=== PATIENT | male | born 1955 ===

== ENCOUNTER → 2018-04-17 | Outpatient (CLI) | payer OTHER ==
[~2018-04-17] MED LIST: AMLO10 PO; ARANESP10 MCG/0.4; ATOR40TA PO; Aranesp40 MCG/0.4 INJ; Bactrim Ds Tab1 EACH PO; CEPH500 PO; CHOL10002 PO; CLON.1 PO; Clotrim Antifun15 GM TP; DOCU100 PO; INS70/30PN SC; LEVEMIR FL100 UNIT/1 SC; METO25 PO; TERA5 PO
== END | disposition home or self-care (01) ==
LOC: LAB 15:00 → LAB SHORT 15:00
DX: E11.9 Type 2 diabetes mellitus without complications (principal)
CPT/HCPCS: 83036

== ENCOUNTER 2018-07-01 06:36 | Inpatient (IN) | payer OTHER ==
[~2018-07-01] VITALS: Ht 165.1 cm; Wt 78.0 kg
[2018-07-01] MEDS ORDERED: HYDR10 PO (07:30)
[2018-07-01] MEDS ORDERED: BUME2 PO (07:30)
[2018-07-01] MEDS ORDERED: TAMS.4ER PO (07:30)
[2018-07-01 09:11] LABS: BASOPHILS ABSOLUTE AUTO 0.03 K/mm3 (0.00-0.23); BASOPHILS PERCENT AUTO 0 % (0-2); EOSINOPHILS ABSOLUTE AUTO 0.38 K/mm3 (0.00-0.68); EOSINOPHILS PERCENT AUTO 4 % (0-6); Hematocrit 23.5 % (37.0-53.0); Hemoglobin 7.5 g/dL (13.5-17.5); IMMATURE GRAN ABSOLUTE AUTO 0.19 K/mm3 (0.00-0.10); IMMATURE GRAN PERCENT AUTO 2 % (0-1); LYMPHOCYTES ABSOLUTE AUTO 0.66 K/mm3 (0.84-5.20); LYMPHOCYTES PERCENT AUTO 8 % (21-46); MONOCYTES ABSOLUTE AUTO 0.79 K/mm3 (0.16-1.47); MONOCYTES PERCENT AUTO 9 % (4-13); Mean Corpuscular HGB 28.6 pg (26.0-34.0); Mean Corpuscular HGB Conc 31.9 g/dL (31.5-36.5); Mean Corpuscular Volume 90 fL (80-100); Mean Platelet Volume 10.8 fL (9.1-12.4); NEUTROPHILS ABSOLUTE AUTO 6.65 K/mm3 (1.96-9.15); NEUTROPHILS PERCENT AUTO 76 % (41-73); NRBC ABSOLUTE 0.03 K/mm3 (0.00-0.02); NRBC Auto 0.3 /100 WBC (0.0-0.2); Platelet Count 190 K/mm3 (150-400); RDW Coefficient Variation 15.9 % (11.7-14.2); RDW Standard Deviation 51.6 fL (35.1-46.3); Red Blood Cell Count 2.62 M/mm3 (4.30-5.90)
[2018-07-01 10:29] LABS: Albumin, Blood 2.8 g/dL (3.4-5.0); Albumin/Globulin Ratio 0.6 (0.8-1.8); Bilirubin, Total 0.3 mg/dL (0.1-1.0); Bun/Creatinine Ratio 11.5 (12.0-20.0); Calcium, Blood 5.5 mg/dL (8.5-10.1); Creatinine, Blood 17.5 mg/dL (0.60-1.20); Globulin, Blood 4.4 g/dL (2.2-4.0); Total Protein, Blood 7.2 g/dL (6.4-8.2); Troponin I 0.619 ng/mL (0.000-0.040)
--- NOTE | 2018-07-01 19:22 | NUR ---
SHIFT SUMMARY. 1430 PT ADMITTED TO PCU FOR ESRD. SPOKE WITH DR. GARCIA, SHE REQUESTED THE PT BE ASKED IF HE WAS READY TO START DIALYSIS AT THIS TIME, HE HAD BEEN AVOIDING IT OVER THE PAST YEAR. FAMILY AT BEDSIDE, RISKS AND BENEFITS OF DIALYSIS GIVEN TO PT AND FAMILY. PT AND FAMILY AGREE TO START DIALYSIS. RELAYED THIS TO DR. GARCIA, SHE REQUESTED DR. KEARNEY BE CONSULTED FOR CATHETER PLACEMENT. DR. KEARNEY PLACED FEMORAL CATHETER TO R GROIN AT BEDSIDE, NURSE AT BEDSIDE FOR ASSISTANCE. PT TAKEN TO DIALYSIS ROOM SHORTLY AFTER PLACEMENT OF CATHETER.
[2018-07-02 05:03] LABS: Anion Gap 17 mmol/L (6-16); Blood Urea Nitrogen 158 mg/dL (8-24); CO2, Blood 19 mmol/L (21-32); Chloride, Blood 99 mmol/L (98-108); Glucose, Blood 136 mg/dL (70-99); Potassium, Blood 4.2 mmol/L (3.5-5.5); Sodium, Blood 135 mmol/L (136-145)
[2018-07-02 05:04] LABS: Albumin, Blood 2.4 g/dL (3.4-5.0); Glomerular Filtration Rate 3 (60-)
[2018-07-02 05:06] LABS: Calcium, Blood 5.6 mg/dL (8.5-10.1)
--- NOTE | 2018-07-02 05:26 | NUR ---
PCU NOC SHIFT SUMMARY PATIENT ALERT AND ORIENTED X4 T/O SHIFT. RESPIRATIONS E/U ON ROOM AIR. PATIENT NOTED TO BE HYPERTENSIVE T/O SHIFT -HYDRALIZINE GIVEN X1 PER EMAR. RIGHT CATH SITE REMAINS IN PLACE WNL. PATIENT SLEPT WELL T/O SHIFT- DAUGHTER AT BEDSIDE HELPFUL. PATIENT EDUCATED ON PO-OP, MEDICATION AND DM2 MANAGEMENT. VSS, NO ACUTE DISTRESS NOTED. WILL CONTINUE TO MONITOR AND GIVE REPORT TO DAYSHIFT RN.
--- NOTE | 2018-07-02 12:05 | NUR ---
Echocardiogram completed.
--- NOTE | 2018-07-02 13:01 | NUR ---
Apresoline given for hypertension at this time. Blood pressure still high 1.5 hours following Norvasc administration. Pt was taken to dialysis.
[2018-07-02 13:25] LABS: Hematocrit 24.4 % (37.0-53.0); Hemoglobin 8.1 g/dL (13.5-17.5)
--- NOTE | 2018-07-02 18:27 | NUR ---
No c/o pain or difficulty breathing. His only difficulty today has been nausea and vomiting following dialysis when he got up to use the bedside commode. This resolved on its own and he declined the zofran ordered prn. Blood pressure was unresponsive to prn apresoline which was administered before dialysisat 1300. he returned from dialysis around 4 pm. Cardilogy saw him and oral metoprolol was started this evening. His family is at the bedside.
--- NOTE | 2018-07-03 00:17 | NUR ---
[facility] REPORTS QUEEZY UPSET STOMACH PER ENGINE DISPATCHER DUE TO LANGUAGE BARRIER. ZOFRAN GIVEN AND REPORTS MUCH IMPROVED. MILD LOOSE COUGH AND PRODUCTIVE COUGH W/ VERY THIN SPIT LIKE SPUTUM. DAUGHTER REPORTS THIS HAS BEEN COMMON RECENTLY. SHE ALSO REPORTS HE WIPED HIS NOSE AND HAD A LITTLE BLOOD ON TISSUE. AND THIS HAS BEEN COMMON TOO THIS WINTER. LIGHT PINKISH DRAINAGE AT ORIFACE OF DSG FOR TEMP VAS CATH FOR HD USE. DENIES PAIN. NO ACTIVE BLEED. HIGHER BP AND WAITED A FEW HOURS TO CHECK ON RESULTS W/ PO MEDS. 174/80. APRESOLINE IV GIVEN AND NO IMMEDIATE CHANGE. LEFT TO CONT TO SLEEP/ DAUGHTER REPORTS SHE CAUGHT HIM OUT OF BED LEAVING BR AFTER GETTING OUT OF BED TO WALK INTO BR. BED ALARM WAS NOT ON AND DAUGHTER WAS ASLEEP/ THIS MAY HAVE OCCURED AROUND 2229. RECHECKED VAS CATH SITE AND NO ACUTE CHANGE OR BLEEDING. BED ALARM SET AND DAUGHTER ADVISED ON THIS EFFORT TO OBSERVE THE VERY LINITED WALKING, WITH BSC AND PIVOT ONLY. EXPRESSES UNDERSTANDING W/ HER DAD, IN HIS LANGUAGE
[2018-07-03 04:36] LABS: BASOPHILS ABSOLUTE AUTO 0.04 K/mm3 (0.00-0.23); BASOPHILS PERCENT AUTO 1 % (0-2); EOSINOPHILS ABSOLUTE AUTO 0.19 K/mm3 (0.00-0.68); EOSINOPHILS PERCENT AUTO 2 % (0-6); Hemoglobin 9.1 g/dL (13.5-17.5); IMMATURE GRAN ABSOLUTE AUTO 0.09 K/mm3 (0.00-0.10); IMMATURE GRAN PERCENT AUTO 1 % (0-1); LYMPHOCYTES ABSOLUTE AUTO 0.61 K/mm3 (0.84-5.20); LYMPHOCYTES PERCENT AUTO 7 % (21-46); MONOCYTES ABSOLUTE AUTO 0.73 K/mm3 (0.16-1.47); MONOCYTES PERCENT AUTO 8 % (4-13); Mean Corpuscular HGB 28.6 pg (26.0-34.0); Mean Corpuscular HGB Conc 32.5 g/dL (31.5-36.5); Mean Corpuscular Volume 88 fL (80-100); Mean Platelet Volume 9.9 fL (9.1-12.4); NEUTROPHILS PERCENT AUTO 81 % (41-73); Platelet Count 186 K/mm3 (150-400); RDW Coefficient Variation 15.3 % (11.7-14.2); RDW Standard Deviation 49.3 fL (35.1-46.3); Red Blood Cell Count 3.18 M/mm3 (4.30-5.90); White Blood Cell Count 8.66 K/mm3 (4.00-11.30)
[2018-07-03 05:02] LABS: CHOL/HDL RATIO 4.3; Cholesterol 175 mg/dL (50-200); HDL Cholesterol 41 mg/dL (>39); LDL/HDL RATIO 2.3; Low Density Lipoprotein Chol 95 mg/dL (0-110); Triglycerides 193 mg/dL (30-160); Very Low Density Lipoprot Chol 38 mg/dL (6-32)
[2018-07-03 05:09] LABS: Albumin, Blood 2.6 g/dL (3.4-5.0); Anion Gap 16 mmol/L (6-16); Blood Urea Nitrogen 104 mg/dL (8-24); Bun/Creatinine Ratio 9.5 (12.0-20.0); CO2, Blood 21 mmol/L (21-32); Calcium, Blood 6.9 mg/dL (8.5-10.1); Chloride, Blood 99 mmol/L (98-108); Glomerular Filtration Rate 5 (60-); Glucose, Blood 133 mg/dL (70-99); Phosphorus, Blood 6.6 mg/dL (2.5-4.9); Potassium, Blood 3.5 mmol/L (3.5-5.5); Sodium, Blood 136 mmol/L (136-145)
--- NOTE | 2018-07-03 17:56 | NUR ---
SHIFT SUMMARY Assumed care of pt at 0700 from Sara MOTTA. Pt on room air. SR per tele. Pt mobilizes around room without difficulty. SBA due to femoral catheter. After AM meds, this RN noticed that pt had about 50 ml of thin, watery, liquid in emesis bag. Pt was coughing and gagging when producing this liquid. Pt states this has been happening recently when he takes his pills, but this is not normal for him. Bed in lowest position. Call light in reach. Pt denies need at this time. Will continue to closely monitor until care handoff and bedside report with oncoming RN.
--- NOTE | 2018-07-03 22:23 | NUR ---
PM NOTE. ASSUMED CARE OF PT APROX 1900, PT IS A&O W/SBA TO BSC DUE TO RIGHT GROIN DIALYSIS CATH. PT HAS HX OF CKD. TELE INTACT, NSR W/BBB IN THE 70'S PER DUST COLLECTOR, PT'S BP IS 162/72, PT HAS 2+ PITTING EDEMA TO THE BLE AND 1+TO THE ABD AREA AND ARMS. PT'S L/S CLEAR T/O AND FINE CRACKELS IN THE RIGHT BASE. ABD IS FIRM AND SLIGHTLY DISTENDED, PT STATES THIS IS NORMAL FOR HIM. BT PRESENT AND HYPERACTIVE IN ALL QUADRANTS. WILL CONTINUE TO MONITOR.
[2018-07-04 03:12] LABS: HBSAG SCREEN Negative (Negative); HEP A AB, IGM Negative (Negative); HEP B CORE AB, IGM Negative (Negative); HEP C VIRUS AB 0.1 (0.0-0.9)
[2018-07-04 04:39] LABS: BASOPHILS ABSOLUTE AUTO 0.04 K/mm3 (0.00-0.23); BASOPHILS PERCENT AUTO 1 % (0-2); EOSINOPHILS ABSOLUTE AUTO 0.25 K/mm3 (0.00-0.68); EOSINOPHILS PERCENT AUTO 3 % (0-6); Hematocrit 27.7 % (37.0-53.0); Hemoglobin 8.8 g/dL (13.5-17.5); IMMATURE GRAN ABSOLUTE AUTO 0.06 K/mm3 (0.00-0.10); IMMATURE GRAN PERCENT AUTO 1 % (0-1); LYMPHOCYTES ABSOLUTE AUTO 0.83 K/mm3 (0.84-5.20); LYMPHOCYTES PERCENT AUTO 10 % (21-46); MONOCYTES ABSOLUTE AUTO 1.06 K/mm3 (0.16-1.47); MONOCYTES PERCENT AUTO 12 % (4-13); Mean Corpuscular HGB 28.1 pg (26.0-34.0); Mean Corpuscular HGB Conc 31.8 g/dL (31.5-36.5); Mean Corpuscular Volume 89 fL (80-100); Mean Platelet Volume 9.8 fL (9.1-12.4); NEUTROPHILS ABSOLUTE AUTO 6.47 K/mm3 (1.96-9.15); NEUTROPHILS PERCENT AUTO 74 % (41-73); Platelet Count 186 K/mm3 (150-400); RDW Coefficient Variation 14.9 % (11.7-14.2); RDW Standard Deviation 47.9 fL (35.1-46.3); Red Blood Cell Count 3.13 M/mm3 (4.30-5.90); White Blood Cell Count 8.71 K/mm3 (4.00-11.30)
[2018-07-04 05:44] LABS: Albumin, Blood 2.4 g/dL (3.4-5.0); Anion Gap 9 mmol/L (6-16); Blood Urea Nitrogen 72 mg/dL (8-24); Bun/Creatinine Ratio 8.1 (12.0-20.0); CO2, Blood 31 mmol/L (21-32); Calcium, Blood 7.2 mg/dL (8.5-10.1); Chloride, Blood 98 mmol/L (98-108); Creatinine, Blood 8.86 mg/dL (0.60-1.20); Glomerular Filtration Rate 6 (60-); Glucose, Blood 107 mg/dL (70-99); Phosphorus, Blood 4.7 mg/dL (2.5-4.9); Sodium, Blood 138 mmol/L (136-145)
--- NOTE | 2018-07-04 06:53 | NUR ---
SHIFT SUMMARY. NO ACUTE CHANGES NOTED, PT VS HAVE BEEN STABLE T/O SHIFT, PT DENIES ANY CHEST PAIN/PRESSURE, N/V OR SOB. PT HAS BEEN NPO SINCE MIDNIGHT FOR POSSIBLE PERMACATH PLACEMENT TODAY. PT HAS HAD FAMILY AT THE BEDSIDE ALL SHIFT. PT DENIES ANY NEEDS, QUESTIONS OR CONCERNS. CALL LIGHT IN REACH, BED IS LOCKED AND LOW, WILL CONTINUE TO MONITOR UNTIL REPORT IS GIVEN TO ONCOMING RN.
--- NOTE | 2018-07-04 10:17 | NUR ---
FROM PCU TO BAY 7 IN [facility] ADMISSION TO [facility] STARTED RECIEVED REPORT FORM CRIMINAL DEFENSE LAWYER.
--- NOTE | 2018-07-04 10:27 | NUR ---
BEGINNING OF SHIFT Assumed care of pt at 0700 from Christina MOTTA. Pt NPO for permacath placement today. AM pills given with one sip of water, okay per Dr Santo. Calcium and aspirin held. Pt on room air. Mobilizes well in room. Pt to day surgery at 1005.
--- NOTE | 2018-07-04 17:29 | NUR ---
UPDATE AND TRANSFER TO MEDICAL FLOOR Pt arrived back from day surgery at 1237. Permacath noted to right chest wall. Permacath insertion site draining a small amount of red drainage. Dressing reiforced with one 4x4 gauze and tape that remained intact upon departure from unit. Temporary dialysis catheter removed from pt's right groin by this RN and charge master coordinator Sheri. Manual pressure held until site was stable. Dressed with petroleum gauze, 4x4 gauze, and tegaderm. Pt tolerated removal well. No drainage, bruising, or hematoma noted to site. No changes noted to site at time of departure from unit. Pt tolerated thin liquids and food well. This RN called critical troponin to Dr Bateman. No additional orders. Discussed pt's BP with provider. Report called to surgical floor ÁNGELA Marti. Pt transferred to room 224 at 1729 accompanied by FLAVOR MAKER and RN. Chart, medications, and belongings transferred with patient.
--- NOTE | 2018-07-04 17:41 | NUR ---
ARRIVED TO UNIT FROM PCU. DENIES PAIN,N/V OR SOB. RESPIRATIONS EASY ON 1L NC. DRESSING TO RCW HAS SMALL AMT SANGUINEOUS DRAINAGE. SITE TO R GROIN HAS SMALL AMOUNT SANGUINEOUS DRAINAGE. PT TRANSFERRED TO BED W/SBA. FAMILY AT BEDSIDE. CALL LIGHT IN REACH.
[2018-07-05 04:39] LABS: BASOPHILS ABSOLUTE AUTO 0.07 K/mm3 (0.00-0.23); BASOPHILS PERCENT AUTO 1 % (0-2); EOSINOPHILS ABSOLUTE AUTO 0.48 K/mm3 (0.00-0.68); EOSINOPHILS PERCENT AUTO 5 % (0-6); Hematocrit 27.2 % (37.0-53.0); Hemoglobin 8.6 g/dL (13.5-17.5); IMMATURE GRAN ABSOLUTE AUTO 0.04 K/mm3 (0.00-0.10); IMMATURE GRAN PERCENT AUTO 0 % (0-1); LYMPHOCYTES ABSOLUTE AUTO 0.93 K/mm3 (0.84-5.20); LYMPHOCYTES PERCENT AUTO 10 % (21-46); MONOCYTES ABSOLUTE AUTO 1.01 K/mm3 (0.16-1.47); MONOCYTES PERCENT AUTO 11 % (4-13); Mean Corpuscular HGB 28.4 pg (26.0-34.0); Mean Corpuscular HGB Conc 31.6 g/dL (31.5-36.5); Mean Corpuscular Volume 90 fL (80-100); Mean Platelet Volume 9.4 fL (9.1-12.4); NEUTROPHILS ABSOLUTE AUTO 6.84 K/mm3 (1.96-9.15); NEUTROPHILS PERCENT AUTO 73 % (41-73); Platelet Count 165 K/mm3 (150-400); RDW Coefficient Variation 14.5 % (11.7-14.2); RDW Standard Deviation 47.6 fL (35.1-46.3); Red Blood Cell Count 3.03 M/mm3 (4.30-5.90); White Blood Cell Count 9.37 K/mm3 (4.00-11.30)
--- NOTE | 2018-07-05 04:46 | NUR ---
POD 1 S/P PERMACATH PLACEMENT. PT VSS T/O NIGHT, BP ELEVATED, BUT REMAINED OUTSIDE OF PRN HYDRALAZINE PARAMETERS. SITE TO PERMACATH AND FEMORAL CATH WNL. PT DENIED PAIN/N/V. PT UP IN ROOM W/SBA, FAMILY PRESENT IN ROOM, WILL CONT TO MONITOR UNTIL REP GIVEN TO ONCOMING RN.
[2018-07-05 06:00] LABS: Albumin, Blood 2.4 g/dL (3.4-5.0); Anion Gap 10 mmol/L (6-16); Blood Urea Nitrogen 74 mg/dL (8-24); Bun/Creatinine Ratio 7.7 (12.0-20.0); CO2, Blood 28 mmol/L (21-32); Calcium, Blood 6.9 mg/dL (8.5-10.1); Chloride, Blood 96 mmol/L (98-108); Creatinine, Blood 9.64 mg/dL (0.60-1.20); Glomerular Filtration Rate 6 (60-); Glucose, Blood 157 mg/dL (70-99); Phosphorus, Blood 5.1 mg/dL (2.5-4.9); Potassium, Blood 4.4 mmol/L (3.5-5.5); Sodium, Blood 134 mmol/L (136-145)
--- NOTE | 2018-07-05 09:49 | NUR ---
pt in dialysis
[2018-07-05] MEDS ORDERED: ACET500 PO (12:20)
[2018-07-05] MEDS ORDERED: AMLO5 PO (12:21)
[2018-07-05] MEDS ORDERED: ASPI81CH PO (12:22)
[2018-07-05] MEDS ORDERED: ATOR10 PO (12:23)
[2018-07-05] MEDS ORDERED: Calcium Acetat667 MG PO (12:24)
[2018-07-05] MEDS ORDERED: Senna Plus Tab1 EACH PO (12:25)
[2018-07-05] MEDS ORDERED: ONDA4ODT PO (12:26)
[2018-07-05] MEDS ORDERED: METO50ER PO (12:27)
--- NOTE | 2018-07-05 14:24 | NUR ---
DISCHARGED DC'D IV, CATHETER INTACT. REVIEWED DC INSTRUCTIONS W/PT AND FAMILY. VERBALIZED UNDERSTANDING. FAXED PRESCRIPTIONS TO [facility] PER PT REQUEST. DC'D AND RETURNED TELEMETRY UNIT. PT LEFT UNIT IN WC W/POSSESSIONS AND DC PAPERWORK IN HAND, ACCOMPANIED BY FAMILY.
== END 2018-07-05 14:24 | disposition home or self-care (01) | DRG 682 ==
LOC: ER 06:36 → SURS 11:13 → PCU 11:13 → SURS 07-04 17:30
PROVIDERS: Internal Medicine; Internal Medicine Cardiovascular Disease; Physician Assistant; ADMIT Internal Medicine
PROC: 06HM33Z Insertion of Infusion Device into Right Femoral Vein, Percutaneous Approach (ICD-10-PCS; principal; 2018-07-01)
PROC: B54BZZA Ultrasonography of Right Lower Extremity Veins, Guidance (ICD-10-PCS; 2018-07-01)
PROC: 5A1D70Z Performance of Urinary Filtration, Intermittent, Less than 6 Hours Per Day (ICD-10-PCS; 2018-07-01)
PROC: 30243N1 Transfusion of Nonautologous Red Blood Cells into Central Vein, Percutaneous Approach (ICD-10-PCS; 2018-07-01)
PROC: 05HM33Z Insertion of Infusion Device into Right Internal Jugular Vein, Percutaneous Approach (ICD-10-PCS; 2018-07-04)
PROC: B543ZZA Ultrasonography of Right Jugular Veins, Guidance (ICD-10-PCS; 2018-07-04)
DX: I13.11 Hypertensive heart and chronic kidney disease without heart failure, with stage 5 chronic kidney disease, or end stage renal disease (principal); N18.6 End stage renal disease; E87.2 Acidosis; E87.1 Hypo-osmolality and hyponatremia; N17.9 Acute kidney failure, unspecified; N04.9 Nephrotic syndrome with unspecified morphologic changes; E11.22 Type 2 diabetes mellitus with diabetic chronic kidney disease; Z79.4 Long term (current) use of insulin; E87.5 Hyperkalemia; E83.51 Hypocalcemia; E83.39 Other disorders of phosphorus metabolism; D63.1 Anemia in chronic kidney disease; Z87.891 Personal history of nicotine dependence; E87.70 Fluid overload, unspecified; Z99.2 Dependence on renal dialysis
CPT/HCPCS: 36415; 36416; 36430; 71046; 77001; 80053; 80061; 80069; 80074; 82947; 83735; 83880; 84132; 84443; 84484; 85014; 85018; 85025; 86317; 86850; 86900; 86901; 86923; 93005; 93010; 93306; 96374; 96375; 99285-25; C1750; J0360; J0610; J0690; J0881; J1644; J1815; J1940; J2250; J2370; J2405; J3010; J7030; P9016

== ENCOUNTER → 2018-07-09 | Outpatient (CLI) | payer OTHER ==
[~2018-07-09] MED LIST changes: +ACET500 PO; +AMLO5 PO; +ASPI81CH PO; +ATOR10 PO; +BUME2 PO; +Calcium Acetat667 MG PO; +HYDR10 PO; +METO50ER PO; +ONDA4ODT PO; +Senna Plus Tab1 EACH PO; +TAMS.4ER PO
[2018-07-09 16:55] LABS: BASOPHILS ABSOLUTE AUTO 0.05 K/mm3 (0.00-0.23); BASOPHILS PERCENT AUTO 1 % (0-2); EOSINOPHILS ABSOLUTE AUTO 0.23 K/mm3 (0.00-0.68); EOSINOPHILS PERCENT AUTO 6 % (0-6); Hematocrit 25.9 % (37.0-53.0); Hemoglobin 8.1 g/dL (13.5-17.5); IMMATURE GRAN ABSOLUTE AUTO 0.03 K/mm3 (0.00-0.10); IMMATURE GRAN PERCENT AUTO 1 % (0-1); LYMPHOCYTES ABSOLUTE AUTO 0.72 K/mm3 (0.84-5.20); LYMPHOCYTES PERCENT AUTO 19 % (21-46); MONOCYTES ABSOLUTE AUTO 0.37 K/mm3 (0.16-1.47); MONOCYTES PERCENT AUTO 10 % (4-13); Mean Corpuscular HGB 28.5 pg (26.0-34.0); Mean Corpuscular HGB Conc 31.3 g/dL (31.5-36.5); Mean Corpuscular Volume 91 fL (80-100); Mean Platelet Volume 9.9 fL (9.1-12.4); NEUTROPHILS ABSOLUTE AUTO 2.42 K/mm3 (1.96-9.15); NEUTROPHILS PERCENT AUTO 63 % (41-73); Platelet Count 163 K/mm3 (150-400); RDW Coefficient Variation 14.1 % (11.7-14.2); RDW Standard Deviation 47.5 fL (35.1-46.3); Red Blood Cell Count 2.84 M/mm3 (4.30-5.90); White Blood Cell Count 3.82 K/mm3 (4.00-11.30)
[2018-07-09 17:10] LABS: Alanine Aminotransfer (ALT/SGP 144 U/L (12-78); Albumin, Blood 2.6 g/dL (3.4-5.0); Albumin/Globulin Ratio 0.6 (0.8-1.8); Alk Phos 472 U/L (50-136); Aspartate Aminotrans (AST/SGOT 140 U/L (12-37); Bilirubin, Direct <0.1 mg/dL (0.0-0.3); Bilirubin, Indirect Unable to Calculate mg/dL (0.1-0.7); Bilirubin, Total 0.3 mg/dL (0.1-1.0); Globulin, Blood 4.1 g/dL (2.2-4.0); Total Protein, Blood 6.7 g/dL (6.4-8.2)
== END | disposition home or self-care (01) ==
LOC: LAB SHORT 16:25 → LAB 16:25
PROVIDERS: Internal Medicine
DX: N18.6 End stage renal disease (principal)
CPT/HCPCS: 80076; 85025

== ENCOUNTER 2018-11-26 06:25 | Day surgery (SDC) | payer MEDICARE ==
[~2018-11-26] VITALS: Ht 160 cm; Wt 70.0 kg
[2018-11-26 07:26] LABS: BASOPHILS ABSOLUTE AUTO 0.08 K/mm3 (0.00-0.23); BASOPHILS PERCENT AUTO 1 % (0-2); EOSINOPHILS ABSOLUTE AUTO 0.44 K/mm3 (0.00-0.68); EOSINOPHILS PERCENT AUTO 7 % (0-6); Hematocrit 36.8 % (37.0-53.0); Hemoglobin 11.6 g/dL (13.5-17.5); IMMATURE GRAN ABSOLUTE AUTO 0.01 K/mm3 (0.00-0.10); IMMATURE GRAN PERCENT AUTO 0 % (0-1); LYMPHOCYTES PERCENT AUTO 25 % (21-46); MONOCYTES ABSOLUTE AUTO 0.73 K/mm3 (0.16-1.47); MONOCYTES PERCENT AUTO 12 % (4-13); Mean Corpuscular HGB Conc 31.5 g/dL (31.5-36.5); Mean Corpuscular Volume 102 fL (80-100); Mean Platelet Volume 9.1 fL (9.1-12.4); NEUTROPHILS PERCENT AUTO 55 % (41-73); Platelet Count 177 K/mm3 (150-400); RDW Coefficient Variation 13.3 % (11.7-14.2); RDW Standard Deviation 50.1 fL (35.1-46.3); Red Blood Cell Count 3.62 M/mm3 (4.30-5.90); White Blood Cell Count 6.36 K/mm3 (4.00-11.30)
[2018-11-26 07:41] LABS: Bun/Creatinine Ratio 6.9 (12.0-20.0); Calcium, Blood 8.3 mg/dL (8.5-10.1); Creatinine, Blood 6.56 mg/dL (0.60-1.20); International Normalized Ratio 1.01; Potassium, Blood 5.2 mmol/L (3.5-5.5); Prothrombin Time Results 10.7 Sec (9.7-11.5)
== END 2018-11-26 11:00 | disposition home or self-care (01) ==
LOC: MHTC 06:25
PROVIDERS: Radiology Diagnostic Radiology
PROC: 057Y3ZZ Dilation of Upper Vein, Percutaneous Approach (ICD-10-PCS; principal; 2018-11-26)
DX: T82.868A Thrombosis due to vascular prosthetic devices, implants and grafts, initial encounter (principal); N18.6 End stage renal disease; E11.22 Type 2 diabetes mellitus with diabetic chronic kidney disease; I12.0 Hypertensive chronic kidney disease with stage 5 chronic kidney disease or end stage renal disease; N13.9 Obstructive and reflux uropathy, unspecified; E55.9 Vitamin D deficiency, unspecified; E78.5 Hyperlipidemia, unspecified; I83.90 Asymptomatic varicose veins of unspecified lower extremity; Z99.2 Dependence on renal dialysis; Z79.899 Other long term (current) drug therapy; Z79.4 Long term (current) use of insulin; Z79.82 Long term (current) use of aspirin; Z87.891 Personal history of nicotine dependence
CPT/HCPCS: 36901; 36907; 80048; 82947; 85025; 85610; 99152; 99153; C1725; C1769; C1887; C1894; J1644; J2250; J3010; J7030; Q9967

== ENCOUNTER 2019-04-24 06:26 | Day surgery (SDC) | payer OTHER, MEDICARE ==
[~2019-04-24] VITALS: Ht 167.6 cm; Wt 71.0 kg
[~2019-04-24 06:26] MED LIST changes: -BUME2 PO; +Bumetanide1 MG PO; +CENTRUM SILVER1 EAC2 PO; +THERA-D2000 UNIT PO
--- NOTE | 2019-04-24 10:34 | NUR ---
PTS BP CURRENTLY 214/101 AND HAS NOT DECREASED SINCE RESTING. DISCUSSED WITH DR. Romano WHO REQUESTED HYDRALAZINE 10MG IV NOW. DISCUSSED WITH PT AND HIS WHO DECIDED TO RUN HOME AND GET HOME MEDICATION FOR BP. MD NOTIFIED. WILL CONTINUE TO MONITOR.
--- NOTE | 2019-04-24 11:15 | NUR ---
DUE TO PTS BP STILL INCREASING 227/135 AND PTS NOT BACK YET WITH HOME MEDICATIONS. PT WAS GIVEN 10MG HYDRALAZINE IVP ORDERED BY DR. Romano. WILL CONTINUE TO MONITOR.
--- NOTE | 2019-04-24 11:56 | NUR ---
ADDITIONAL V/O FOR HYDRALAZINE 10MG IV PUSH FOR HYPERTENSION FROM DR. Romano. PT MEDICATED AT 1150. PT ALSO TOOK HOME MEDICATION METOPROLOL 50MG ER. NOTIFED. PT CURRENTLY EATING LUNCH. WILL CONTINUE TO MONITOR. GOAL TO DECREASE BP PRIOR TO PURSE STRING SUTURE REMOVAL.
== END 2019-04-24 23:03 | disposition home or self-care (01) ==
LOC: MHTC 06:26
DX: T82.858A Stenosis of other vascular prosthetic devices, implants and grafts, initial encounter (principal); I12.0 Hypertensive chronic kidney disease with stage 5 chronic kidney disease or end stage renal disease; E11.22 Type 2 diabetes mellitus with diabetic chronic kidney disease; N18.6 End stage renal disease; D63.1 Anemia in chronic kidney disease; N40.0 Benign prostatic hyperplasia without lower urinary tract symptoms; E11.42 Type 2 diabetes mellitus with diabetic polyneuropathy; Z79.82 Long term (current) use of aspirin; Z79.4 Long term (current) use of insulin; Z79.899 Other long term (current) drug therapy; Z99.2 Dependence on renal dialysis; Z87.891 Personal history of nicotine dependence; Y84.0 Cardiac catheterization as the cause of abnormal reaction of the patient, or of later complication, without mention of misadventure at the time of the procedure
CPT/HCPCS: 36901; 36908; 76937; 82947; 99152; 99153; C1725; C1769; C1876; C1887; C1894; J0360; J1644; J2250; J3010; J7030; Q9967

== ENCOUNTER 2019-12-31 11:27 | Day surgery (SDC) | payer OTHER, MEDICARE ==
[~2019-12-31] VITALS: Ht 160 cm; Wt 69.0 kg
[~2019-12-31 11:27] MED LIST changes: -THERA-D2000 UNIT PO; +Vitamin D2000 UNIT PO
--- NOTE | 2019-12-31 12:10 | NUR ---
PT TOOK HOME METOPROLOL 50MG PO NOW D/T ELEVATED BP NOTED. PT HADN'T TAKEN ANY MEDICATION IN 3 DAYS. CALL LIGHT WITHIN REACH. S/O AT BEDSIDE. PT AWAITING FISTULAGRAM
--- NOTE | 2019-12-31 16:11 | NUR ---
To bathroom. Tolerated well. Dressed for discharge.
--- NOTE | 2019-12-31 17:12 | NUR ---
DISCHARGE PT ATE ALL OF FOOD TRAY. PT DRESSED SELF WITH NO COMPLICATIONS. BOTH PURSE STRING SUTURES REMOVED AND COVERED WITH CLOTH DOT DRESSINGS. VSS. IV DCD WITH CATH INTACT. PT AND STATE THEIR UNDERSTANDING OF DC AND SITE CARE INSTRUCTIONS AND BOTH DENY ANY QUESTIONS OR CONCERNS. PT TAKEN TO FRONT VIA WHEELCHAIR WHERE WAS WAITING WITH VEHICLE.
== END 2019-12-31 23:20 | disposition home or self-care (01) ==
LOC: MHTC 11:27
DX: T82.858A Stenosis of other vascular prosthetic devices, implants and grafts, initial encounter (principal); Y83.2 Surgical operation with anastomosis, bypass or graft as the cause of abnormal reaction of the patient, or of later complication, without mention of misadventure at the time of the procedure; I12.0 Hypertensive chronic kidney disease with stage 5 chronic kidney disease or end stage renal disease; E11.22 Type 2 diabetes mellitus with diabetic chronic kidney disease; N18.6 End stage renal disease; E78.5 Hyperlipidemia, unspecified; Z87.891 Personal history of nicotine dependence; Z20.828 Contact with and (suspected) exposure to other viral communicable diseases; Z99.2 Dependence on renal dialysis; Z79.899 Other long term (current) drug therapy
CPT/HCPCS: 36902; 36907; 76937; 99152; 99153; C1725; C1769; C1887; C1894; J0360; J1644; J2250; J3010; J7030; J7040; Q9967

== ENCOUNTER 2020-02-20 11:20 | Observation (INO) | payer OTHER, MEDICARE ==
[~2020-02-20] VITALS: Ht 165.1 cm; Wt 65.6 kg
[~2020-02-20 11:20] MED LIST changes: +BUME2 PO; -Bumetanide1 MG PO
[2020-02-20 13:24] LABS: Hematocrit 29.8 % (37.0-53.0); Hemoglobin 9.5 g/dL (13.5-17.5); Mean Corpuscular HGB 29.6 pg (26.0-34.0); Mean Corpuscular HGB Conc 31.9 g/dL (31.5-36.5); Mean Corpuscular Volume 93 fL (80-100); Mean Platelet Volume 9.6 fL (9.1-12.4); Platelet Count 232 K/mm3 (150-400); RDW Coefficient Variation 12.8 % (11.7-14.2); RDW Standard Deviation 43.9 fL (35.1-46.3); Red Blood Cell Count 3.21 M/mm3 (4.30-5.90); White Blood Cell Count 8.47 K/mm3 (4.00-11.30)
[2020-02-20 14:06] LABS: Albumin, Blood 2.6 g/dL (3.4-5.0); Albumin/Globulin Ratio 0.5 (0.8-1.8); Bilirubin, Total 0.4 mg/dL (0.1-1.0); Bun/Creatinine Ratio 7.4 (12.0-20.0); Calcium, Blood 9.7 mg/dL (8.5-10.1); Creatinine, Blood 10.3 mg/dL (0.60-1.20); Globulin, Blood 5.6 g/dL (2.2-4.0); Potassium, Blood 6.6 mmol/L (3.5-5.5); Total Protein, Blood 8.2 g/dL (6.4-8.2)
--- NOTE | 2020-02-20 17:36 | NUR ---
discharge summary patient is pleasant, patient denies any concerns. reports that heis pleasant. he has no questions. he had no iv. wheeled out by nurse.
== END 2020-02-20 16:56 | disposition home or self-care (01) ==
LOC: MEDS 11:20
PROVIDERS: Nurse Practitioner Acute Care; ADMIT Internal Medicine
DX: I12.0 Hypertensive chronic kidney disease with stage 5 chronic kidney disease or end stage renal disease (principal); E11.22 Type 2 diabetes mellitus with diabetic chronic kidney disease; N18.6 End stage renal disease; D63.1 Anemia in chronic kidney disease; U07.1 COVID-19; E87.5 Hyperkalemia; I16.0 Hypertensive urgency; N40.0 Benign prostatic hyperplasia without lower urinary tract symptoms; Z79.899 Other long term (current) drug therapy; Z99.2 Dependence on renal dialysis
CPT/HCPCS: 80053; 85027; G0257

== ENCOUNTER 2020-02-24 11:44 | Observation (INO) | payer MEDICARE ==
[2020-02-24] MEDS ORDERED: Bumetanide2 MG PO (11:49)
[2020-02-24] MEDS ORDERED: LOSA50 PO (11:51)
[2020-02-24 13:32] LABS: Albumin, Blood 2.4 g/dL (3.4-5.0); Anion Gap 10 mmol/L (6-16); Blood Urea Nitrogen 72 mg/dL (8-24); CO2, Blood 23 mmol/L (21-32); Chloride, Blood 102 mmol/L (98-108); Glucose, Blood 216 mg/dL (70-99); Phosphorus, Blood 3.6 mg/dL (2.5-4.9); Potassium, Blood 5.1 mmol/L (3.5-5.5); Sodium, Blood 135 mmol/L (136-145)
[2020-02-24 13:35] LABS: Bun/Creatinine Ratio 6.9 (12.0-20.0); Glomerular Filtration Rate 5 (60-)
== END 2020-02-24 16:15 | disposition home or self-care (01) ==
LOC: MEDS 11:44
PROVIDERS: Internal Medicine; ADMIT Family Medicine
DX: I12.0 Hypertensive chronic kidney disease with stage 5 chronic kidney disease or end stage renal disease (principal); E11.22 Type 2 diabetes mellitus with diabetic chronic kidney disease; N18.6 End stage renal disease; D63.1 Anemia in chronic kidney disease; U07.1 COVID-19; N40.0 Benign prostatic hyperplasia without lower urinary tract symptoms; Z99.2 Dependence on renal dialysis; Z91.048 Other nonmedicinal substance allergy status; Z79.899 Other long term (current) drug therapy
CPT/HCPCS: 80069; 85018; G0257; G0378; J0881

== ENCOUNTER 2024-02-27 21:00 | Inpatient (IN) | payer MEDICARE, OTHER ==
[~2024-02-27] VITALS: Ht 172.7 cm; Wt 67.3 kg
[~2024-02-27 21:00] MED LIST changes: +AZIT250 PO; +Atropine Sulfate 0.1 MG/ML 10ML SYR IV ONE; +Bumetanide2 MG PO; +Calcium Chloride 10% 10 ML SYR IV ONE; +LOSA50 PO
[2024-02-27] MEDS ORDERED: AMLO10 PO (21:14)
[2024-02-27] MEDS ORDERED: TORS10 PO (21:15)
[2024-02-27 21:31] LABS: BASOPHILS ABSOLUTE AUTO 0.08 K/mm3 (0.00-0.23); BASOPHILS PERCENT AUTO 1 % (0-2); EOSINOPHILS ABSOLUTE AUTO 0.24 K/mm3 (0.00-0.68); EOSINOPHILS PERCENT AUTO 4 % (0-6); Hemoglobin 10.8 g/dL (13.5-17.5); IMMATURE GRAN ABSOLUTE AUTO 0.03 K/mm3 (0.00-0.10); IMMATURE GRAN PERCENT AUTO 1 % (0-1); LYMPHOCYTES ABSOLUTE AUTO 2.07 K/mm3 (0.84-5.20); LYMPHOCYTES PERCENT AUTO 32 % (21-46); MONOCYTES ABSOLUTE AUTO 0.65 K/mm3 (0.16-1.47); MONOCYTES PERCENT AUTO 10 % (4-13); Mean Corpuscular HGB 27.6 pg (26.0-34.0); Mean Corpuscular HGB Conc 31.8 g/dL (31.5-36.5); Mean Corpuscular Volume 87 fL (80-100); Mean Platelet Volume 10.8 fL (9.1-12.4); NEUTROPHILS ABSOLUTE AUTO 3.47 K/mm3 (1.96-9.15); NEUTROPHILS PERCENT AUTO 53 % (41-73); Platelet Count 156 K/mm3 (150-400); RDW Coefficient Variation 15.9 % (11.7-14.2); Red Blood Cell Count 3.91 M/mm3 (4.30-5.90); White Blood Cell Count 6.54 K/mm3 (4.00-11.30)
[2024-02-27] MEDS ORDERED: Atropine Sulfate 0.1 MG/ML 10ML SYR IV ONE (21:35)
[2024-02-27] MEDS ORDERED: Calcium Chloride 10% 100 MG/ML 10ML Vial IV SCH (21:55)
[2024-02-27] MEDS ORDERED: Insulin Regular 100 Unit/ML 1ML Dose IV ONE (21:55)
[2024-02-27] MEDS ORDERED: Sodium Bicarb 8.4% 1 MEQ/ML 50 ML Vial IV ONE (21:55)
[2024-02-27] MEDS ORDERED: Albuterol 2.5 MG/3 ML VIAL INH SCH (21:55)
[2024-02-27] MEDS ORDERED: Dextrose 50% 50 ML Syringe IV ONE (22:35)
[2024-02-27 22:36] LABS: Free Thyroxine 1.14 ng/dL (0.70-1.60); Thyroid Stimulating Hormone 3.97 uIU/mL (0.360-4.800)
[2024-02-27 22:41] LABS: Albumin, Blood 3.8 g/dL (3.4-5.0); Albumin/Globulin Ratio 0.8 (0.8-1.8); Bilirubin, Total 0.5 mg/dL (0.1-1.0); Bun/Creatinine Ratio 5.9 (12.0-20.0); Calcium, Blood 7.6 mg/dL (8.5-10.1); Creatinine, Blood 12.8 mg/dL (0.60-1.20); Globulin, Blood 4.5 g/dL (2.2-4.0); Potassium, Blood 7.5 mmol/L (3.5-5.5); Total Protein, Blood 8.3 g/dL (6.4-8.2)
[2024-02-27] MEDS ORDERED: FLU VACC TS2024-25(6MOS UP)/PF 45 MCG/0.5 ML SYRINGE IM SCH (22:50)
--- NOTE | 2024-02-27 23:01 | NUR ---
PT TO ICU ROOM 11 VIA STEPHANY WITH ED STAFF. SETTLED INTO ROOM BY LASHELL MOTTA AND LUCY RN. CONTINOUS CARDIAC MONITORING IN PLACE SHOWED SINUS HALIMA WITH HR OF 46 AND BP OF 183/56. PT ASYMPTOMATIC, ALERT AND ORIENTED X 4, INTERACTING WITH STAFF AND ANSWERING QUESTIONS APPROPRIATELY. ON RA WITH O2 SATURATION OF 94%. PT AND GRANDDAUGHTER AT BEDSIDE. SEE ADMIT ASSESSMENT FOR FULL DETAILS.
[2024-02-27 23:13] LABS: Magnesium, Blood 3.5 mg/dL (1.6-2.4); Phosphorus, Blood 7.9 mg/dL (2.5-4.9)
[2024-02-27 23:15] VITALS: BP 183/55
[2024-02-27 23:30] VITALS: BP 183/56
[2024-02-27 23:40] VITALS: BP 176/64
[2024-02-27 23:45] VITALS: BP 182/56
[2024-02-28] VITALS (78 sets, daily range): BP systolic 141–183; BP diastolic 40–84
[2024-02-28] MEDS ORDERED: HydrALAZINE HCl 20 MG / ML 1ML Vial IV PRN (00:20)
[2024-02-28] MEDS ORDERED: CloNIDine 0.1 MG Tab PO PRN (01:05)
[2024-02-28 02:40] LABS: BASOPHILS ABSOLUTE AUTO 0.07 K/mm3 (0.00-0.23); BASOPHILS PERCENT AUTO 1 % (0-2); EOSINOPHILS PERCENT AUTO 2 % (0-6); Hematocrit 31.8 % (37.0-53.0); Hemoglobin 10.1 g/dL (13.5-17.5); IMMATURE GRAN ABSOLUTE AUTO 0.02 K/mm3 (0.00-0.10); IMMATURE GRAN PERCENT AUTO 0 % (0-1); LYMPHOCYTES ABSOLUTE AUTO 0.51 K/mm3 (0.84-5.20); LYMPHOCYTES PERCENT AUTO 8 % (21-46); MONOCYTES ABSOLUTE AUTO 0.48 K/mm3 (0.16-1.47); MONOCYTES PERCENT AUTO 8 % (4-13); Mean Corpuscular HGB Conc 31.8 g/dL (31.5-36.5); Mean Corpuscular Volume 85 fL (80-100); Mean Platelet Volume 10.6 fL (9.1-12.4); NEUTROPHILS ABSOLUTE AUTO 5.05 K/mm3 (1.96-9.15); NEUTROPHILS PERCENT AUTO 81 % (41-73); Platelet Count 140 K/mm3 (150-400); RDW Coefficient Variation 15.9 % (11.7-14.2); RDW Standard Deviation 49.4 fL (35.1-46.3); Red Blood Cell Count 3.74 M/mm3 (4.30-5.90); White Blood Cell Count 6.23 K/mm3 (4.00-11.30)
[2024-02-28 03:14] LABS: Albumin, Blood 3.9 g/dL (3.4-5.0); Albumin/Globulin Ratio 0.9 (0.8-1.8); Bilirubin, Total 0.6 mg/dL (0.1-1.0); Bun/Creatinine Ratio 5.7 (12.0-20.0); Calcium, Blood 8.6 mg/dL (8.5-10.1); Creatinine, Blood 9.2 mg/dL (0.60-1.20); Globulin, Blood 4.3 g/dL (2.2-4.0); Phosphorus, Blood 5.3 mg/dL (2.5-4.9); Potassium, Blood 5.5 mmol/L (3.5-5.5); Total Protein, Blood 8.2 g/dL (6.4-8.2)
[2024-02-28] MEDS ORDERED: Sodium Zirconium Cyclosilicate 10 GM Packet PO SCH ×2 (03:35→09:00)
--- NOTE | 2024-02-28 04:59 | NUR ---
SHIFT SUMMARY PT REMAINED ALERT AND ORIENTED X 4 T/O ENTIRETY OF SHIFT. ABLE TO FOLLOW COMMANDS, MAKE PURPOSEFUL MOVEMENTS, AND MAKE NEEDS KNOWN. AFEBRILE AND DENIES PAIN. CONTINOUS CARDIAC MONITORING IN PLACE SHOWED SINUS HALIMA WITH HR IN 30'S-40'S. SBP 150'S-170'S WITH MAP > 65. ON RA WITH O2 SATURATIONS > 92%. NO BM THIS SHIFT. ONE EPISODE OF NAUSEA THAT SUBSIDED SPONTANEOUSLY. TOLERATED WATER AND PO LOKELMA. DIALYZED THIS SHIFT WITH NET FLUID REMOVAL OF 2150. FISTULA TO LFA, PIV TO RFA. DR. HAYNES NOTIFIED OF AM LABS S/P DIALYSIS, PLAN TO DIALYZE AGAIN TODAY. AT BEDSIDE. WILL CONTINUE TO MONITOR AND REPORT TO ONCOMING RN.
[2024-02-28] MEDS ORDERED: Insulin Human Lispro 100 Units/ML 3ML Syringe SC SCH (07:30)
[2024-02-28] MEDS ORDERED: Calcium Acetate 667 MG Gel Cap PO SCH (08:30)
[2024-02-28] MEDS ORDERED: Sevelamer Carbonate 800 MG Tab PO SCH (08:30)
[2024-02-28] MEDS ORDERED: AmLODIPine Besylate 5 MG Tab PO SCH (09:00)
[2024-02-28] MEDS ORDERED: CloNIDine 0.1 MG Tab PO SCH ×3 (09:00)
[2024-02-28] MEDS ORDERED: Vitamin B Cmplx/Vit C/Folic Ac 1 Tab PO SCH (09:00)
[2024-02-28] MEDS ORDERED: Heparin Sodium,Porcine 5,000 UNIT/0.5 ML SDV SC SCH (09:00)
[2024-02-28] MEDS ORDERED: Metoprolol Tartrate 25 MG Tab PO SCH ×3 (09:00)
[2024-02-28] MEDS ORDERED: Losartan Potassium 50 MG Tab PO SCH (09:00)
[2024-02-28] MEDS ORDERED: Lidocaine 2%-Epineph 1:100000 20 ML MDV ONE (09:47)
[2024-02-28] MEDS ORDERED: NS 1,000 ML IV ONE ×3 (09:48→10:37)
[2024-02-28] MEDS ORDERED: Heparin Sodium 1000 Units/ML 10ML MDV ONE (09:48)
[2024-02-28] MEDS ORDERED: FentaNYL Citrate 50 MCG/ML 2 ML Injection ONE (10:37)
[2024-02-28] MEDS ORDERED: Midazolam HCl 1MG / ML 2ML Vial ONE (10:37)
[2024-02-28] MEDS ORDERED: NS 100 ML IV ONE (11:12)
[2024-02-28] MEDS ORDERED: CeFAZolin Sodium 1000 mg Vial ONE (11:12)
[2024-02-28] MEDS ORDERED: CeFAZolin Sodium 1,000 MG in NS 50 ML IV SCH (11:15)
[2024-02-28] MEDS ORDERED: Acetaminophen 500 MG Tab PO PRN (12:05)
[2024-02-28] MEDS ORDERED: OxyCODONE HCL 5 MG TAB PO PRN (12:10)
--- NOTE | 2024-02-28 13:24 | NUR ---
PT BACK FROM RAG CUTTING MACHINE FEEDER AT 1205. PER RAG CUTTING MACHINE FEEDER RN REPORT, PT TOLERATED PROCEDURE WELL. CURRENTLY SUPINE, ALERT AND ORIENED. R/FEM SITE INTACT, NO BLEEDING NOTED. HR 60S PACED.
[2024-02-28] MEDS ORDERED: Darbepoetin Alfa in Polysorbat 25 MCG/0.42 ML Syringe SC SCH (16:00)
--- NOTE | 2024-02-28 17:07 | NUR ---
Summary. Pt in bed receiving dialysis at this time. A&O, vital signs stable. Pt taken to industrial laborer for pacemaker placement at 1100, returned at 1205. Report from industrial laborer RN taken, pt tolerated procedure well, no adverse events. No acute events this shift. Report given to RN assuming care. See chart for further details.
[2024-02-28] MEDS ORDERED: CeFAZolin Sodium 1,000 MG in NS 50 ML IV ONE (18:00)
[2024-02-28] MEDS ORDERED: NS 250 ML IV PRN (18:35)
--- NOTE | 2024-02-28 18:59 | NUR ---
ASSUMED CARE OF PATIENT AT 17:15: PATIENT RESTING IN BED. PATIENT DENIES CHEST PAIN OR DISCOMFORT. PATIENT HAS COMPLETED LAYING FLAT FOR 4 HOURS. SLOWING INCREASED ELEVATION OF HEAD OF BED AND LEG ACTIVITY FOR THE REST OF THE SHIFT. FEMORAL INSERTION SITE STAYED SOFT AND NON TENDER. VITALS STABLE WITH MAPS>65. RHYTHM IS PACED. PATIENT STABLE ON ROOM AIR WHEN AWAKE WITH SPO2 >94%. NO RESPIRATORY DISTRESS NOTED. PATIENT RECEIVED DIALYSIS THIS EVENING. PATIENT TOLERATED WELL. PATIENT DENIED NAUSEA AND WAS ABLE TO EAT HIS DINNER. ANTIBIOTICS HUNG AFTER DIALYSIS PER ORDERS. FAMILY AT BEDSIDE, THEY ARE SUPPORTIVE OF THE PATIENT.
--- NOTE | 2024-02-28 21:24 | NUR ---
ASSUMED CARE ASSUMED CARE AT 1900. PT A/O X 4. MOVES ALL EXTREMITIES AND FOLLOWS DIRECTIONS. DENIES CHEST OR ABD PAIN. RIGHT GROIN DRSG C/D/I. NO BRUISING OR SIGN OF BLEEDING. VSS, HTN AT TIMES. ON RA WHEN AWAKE. 2L VIA NC WHEN ASLEEP. PT 1 ASSIST TO BRP. FAMILY AT BEDSIDE, GIVEN UPDATE ON POC. CALL LIGHT IN REACH.
[2024-02-29] VITALS (10 sets, daily range): BP systolic 153–172; BP diastolic 46–80
[2024-02-29 03:38] LABS: BASOPHILS ABSOLUTE AUTO 0.08 K/mm3 (0.00-0.23); BASOPHILS PERCENT AUTO 1 % (0-2); EOSINOPHILS ABSOLUTE AUTO 0.32 K/mm3 (0.00-0.68); EOSINOPHILS PERCENT AUTO 4 % (0-6); Hematocrit 33.3 % (37.0-53.0); Hemoglobin 10.6 g/dL (13.5-17.5); IMMATURE GRAN ABSOLUTE AUTO 0.03 K/mm3 (0.00-0.10); IMMATURE GRAN PERCENT AUTO 0 % (0-1); LYMPHOCYTES ABSOLUTE AUTO 1.19 K/mm3 (0.84-5.20); LYMPHOCYTES PERCENT AUTO 14 % (21-46); MONOCYTES ABSOLUTE AUTO 0.73 K/mm3 (0.16-1.47); MONOCYTES PERCENT AUTO 9 % (4-13); Mean Corpuscular HGB 27.6 pg (26.0-34.0); Mean Corpuscular HGB Conc 31.8 g/dL (31.5-36.5); Mean Corpuscular Volume 87 fL (80-100); Mean Platelet Volume 10.5 fL (9.1-12.4); NEUTROPHILS ABSOLUTE AUTO 5.89 K/mm3 (1.96-9.15); NEUTROPHILS PERCENT AUTO 71 % (41-73); Platelet Count 146 K/mm3 (150-400); RDW Standard Deviation 49.9 fL (35.1-46.3); Red Blood Cell Count 3.84 M/mm3 (4.30-5.90); White Blood Cell Count 8.24 K/mm3 (4.00-11.30)
[2024-02-29 04:06] LABS: Magnesium, Blood 2.6 mg/dL (1.6-2.4)
[2024-02-29 04:20] LABS: Albumin, Blood 3.4 g/dL (3.4-5.0); Anion Gap 14 mmol/L (3-11); Blood Urea Nitrogen 38 mg/dL (8-24); Bun/Creatinine Ratio 4.5 (12.0-20.0); CO2, Blood 30 mmol/L (21-32); Calcium, Blood 8.3 mg/dL (8.5-10.1); Chloride, Blood 98 mmol/L (98-108); Creatinine, Blood 8.39 mg/dL (0.60-1.20); Glomerular Filtration Rate 6 (60-); Glucose, Blood 97 mg/dL (70-99); Phosphorus, Blood 4.5 mg/dL (2.5-4.9); Potassium, Blood 4.5 mmol/L (3.5-5.5); Sodium, Blood 137 mmol/L (136-145)
--- NOTE | 2024-02-29 05:11 | NUR ---
SHIFT SUMMARY NO ACUTE EVENTS T/O NIGHT. REMAINS A/O X4. MOVES ALL EXTREMITIES AND REPOSITIONS SELF IN BED. VSS. RA WHEN AWAKE. WHEN PT ASLEEP, SPO2 DOWN TO 81%. PLACED ON 2L VIA NC WITH SPO2 GREATER THEN 92%. PACED RHYTHM RATE 60-70'S. R KARI DALEY C/D/I. AT BEDSIDE. CALL LIGHT IN REACH. WILL REPORT OFF TO ONCOMING RN.
--- NOTE | 2024-02-29 07:59 | NUR ---
PT SITTING UP IN BED, AT BEDSIDE. PT HAVING BOUTS OF DESATURATION, OXYGEN VIA NC @ 2L REPLACED. PT STATES HE IS DESIREING TO GO HOME TODAY, NOTIFIED THAT DIALYSIS CALLED AND WANTED TO RUN HIM THIS AFTERNOON, HE STATED THAT HE DOESN'T HAVE IT THIS OFTEN AND IT MAKES HIM TOO WEAK. WE DISCUSSED WAITING UNTIL THE DOCTORS ROUNDED TO SEE WHAT THE PLAN IS FOR THE DAY.
--- NOTE | 2024-02-29 08:08 | NUR ---
HERE TO SEE THE PATIENT. HE STATES THAT HE IS REMOVING SHEATH TO RIGHT GROIN. TOLD PT IS FEELING WELL AND ANTICIPATES GOING HOME, STATES UP TO THE HOSPITALIST.
--- NOTE | 2024-02-29 08:46 | NUR ---
TO RADIOLOGY VIA WHEELCHAIR FOR 2V CHEST. HAS BEEN UP TO THE BR, CLEARED HIM FROM CARDIAC STANDPOINT FOLLOWING XRAY. PT ALREADY BACK IN BED, OXYGEN TAKEN OFF TO SEE HOW HE DOES. DENIES ANY SHORTNESS OF BREATH OR BREATHING DIFFICULTY.
[2024-02-29] MEDS ORDERED: ACET500 PO (12:18)
[2024-02-29] MEDS ORDERED: B-COMPLEX WITH1 EACH PO (12:19)
[2024-02-29] MEDS ORDERED: LOSA50 PO (12:20)
[2024-02-29] MEDS ORDERED: LOKELMA10 GM PO (12:21)
[2024-02-29] MEDS ORDERED: HYDRA25 PO (12:21)
[2024-02-29] MEDS ORDERED: SEVEC800 PO (12:22)
--- NOTE | 2024-02-29 12:30 | NUR ---
PT HAS REMAINED OFF OF OXYGEN FOR THE ENTIRE DAY. HE ATE HIS LUNCH, AND CAME BY AND GAVE HIM THE GO AHEAD FOR DISCHARGE. DISCHARGE INSTRUCTIONS GIVEN, ATTEMPT TO MAKE THE INSTRUCTIONS IN [place] WERE UNSUC- CESSFUL. PT WAS GIVEN INSTRUCTIONS AND WAS ABLE TO ASK QUESTIONS, GRAND- DAUGHTER JASPREET IN ROOM AND LISTENED TO INSTRUCTIONS. FOLLOW APPT GIVEN TO PT AND FAMILY FOR NEXT SUNDAY FOR [facility]. PT DISCHARGED VIA WHEELCHAIR TO VEHICLE DRIVEN BY GRANDDAUGHTER.
== END 2024-02-29 12:45 | disposition home or self-care (01) | DRG 228 ==
LOC: ER 21:00 → ICUE 22:46
PROVIDERS: Internal Medicine Nephrology; Student in an Organized Health Care Education/Training Program; ADMIT Student in an Organized Health Care Education/Training Program
PROC: 02HK3NZ Insertion of Intracardiac Pacemaker into Right Ventricle, Percutaneous Approach (ICD-10-PCS; principal; 2024-02-27)
DX: I44.2 Atrioventricular block, complete (principal); N18.6 End stage renal disease; I12.0 Hypertensive chronic kidney disease with stage 5 chronic kidney disease or end stage renal disease; Z66 Do not resuscitate; D63.1 Anemia in chronic kidney disease; R79.1 Abnormal coagulation profile; R79.89 Other specified abnormal findings of blood chemistry; E87.5 Hyperkalemia; I35.0 Nonrheumatic aortic (valve) stenosis; E11.22 Type 2 diabetes mellitus with diabetic chronic kidney disease; E83.41 Hypermagnesemia; Z99.2 Dependence on renal dialysis
CPT/HCPCS: 33274; 36415; 71045; 71046; 76937; 80053; 80069; 82947; 83735; 84100; 84439; 84443; 84484; 85025; 85379; 93005; 93010; 93306; 93990; 94644; 94664; 96374; 96375; 99152; 99153; 99285-25; A9270; C1769; C1786; C1894; J0461; J0690; J0881; J1644; J1815; J2250; J3010; J7030; J7040; J7050; Q9967

== ENCOUNTER 2024-04-09 15:39 | Emergency (ER) | payer MEDICARE, OTHER ==
[~2024-04-09] VITALS: Ht 167.6 cm; Wt 70.0 kg
[~2024-04-09 15:39] MED LIST changes: -Atropine Sulfate 0.1 MG/ML 10ML SYR IV ONE; +B-COMPLEX WITH1 EACH PO; -Calcium Chloride 10% 10 ML SYR IV ONE; +HYDRA25 PO; +LOKELMA10 GM PO; +SEVEC800 PO; +TORS10 PO
[2024-04-09 16:14] VITALS: BP 155/57
[2024-04-09] MEDS ORDERED: Lidocaine/Tetracaine/Epinephr 3 ML GEL SYRINGE TOP ONE (17:35)
[2024-04-09] MEDS ORDERED: DOXY100 PO (18:19)
== END 2024-04-09 19:07 | disposition home or self-care (01) ==
LOC: ER 15:39
DX: L02.612 Cutaneous abscess of left foot (principal); E11.22 Type 2 diabetes mellitus with diabetic chronic kidney disease; I12.0 Hypertensive chronic kidney disease with stage 5 chronic kidney disease or end stage renal disease; N18.6 End stage renal disease; Z79.899 Other long term (current) drug therapy; Z87.891 Personal history of nicotine dependence
CPT/HCPCS: 10061; 73630; 99283-25

== ENCOUNTER 2024-04-25 05:42 | Day surgery (SDC) | payer MEDICARE, OTHER ==
[~2024-04-25 05:42] MED LIST changes: +DOXY100 PO
== END 2024-04-25 23:00 | disposition home or self-care (01) ==
LOC: WOUND
DX: E11.621 Type 2 diabetes mellitus with foot ulcer (principal); L97.522 Non-pressure chronic ulcer of other part of left foot with fat layer exposed; E11.51 Type 2 diabetes mellitus with diabetic peripheral angiopathy without gangrene; I87.2 Venous insufficiency (chronic) (peripheral); I10 Essential (primary) hypertension
CPT/HCPCS: G0463

== ENCOUNTER 2024-05-08 04:36 | Day surgery (SDC) | payer MEDICARE, OTHER | END 2024-05-08 23:00 | disposition home or self-care (01) | LOC: WOUND 04:36 | DX: E11.621 Type 2 diabetes mellitus with foot ulcer (principal); L97.522 Non-pressure chronic ulcer of other part of left foot with fat layer exposed; E11.51 Type 2 diabetes mellitus with diabetic peripheral angiopathy without gangrene; I87.2 Venous insufficiency (chronic) (peripheral) | CPT/HCPCS: G0463 ==

== ENCOUNTER 2024-05-15 02:12 | Day surgery (SDC) | payer MEDICARE, OTHER | END 2024-05-15 23:00 | disposition home or self-care (01) | LOC: WOUND 02:12 | DX: E11.621 Type 2 diabetes mellitus with foot ulcer (principal); L97.522 Non-pressure chronic ulcer of other part of left foot with fat layer exposed; E11.51 Type 2 diabetes mellitus with diabetic peripheral angiopathy without gangrene; I87.2 Venous insufficiency (chronic) (peripheral) | CPT/HCPCS: G0463 ==

== ENCOUNTER 2024-05-22 00:58 | Day surgery (SDC) | payer MEDICARE, OTHER ==
[2024-05-22] MEDS ORDERED: Silver Nitr/Potassium Nitrate 1 EA APPL ONE (09:19)
== END 2024-05-22 23:00 | disposition home or self-care (01) ==
LOC: WOUND 00:58
DX: E11.621 Type 2 diabetes mellitus with foot ulcer (principal); L97.522 Non-pressure chronic ulcer of other part of left foot with fat layer exposed; E11.51 Type 2 diabetes mellitus with diabetic peripheral angiopathy without gangrene; I87.2 Venous insufficiency (chronic) (peripheral)
CPT/HCPCS: 87070; 87075; 87077; 87186; 87205; A9270

== ENCOUNTER → 2024-05-29 | Day surgery (SDC) | payer MEDICARE, OTHER ==
[~2024-05-29] MED LIST changes: +Lidocaine HCl 4% Cream 5 GM ONE
== END ==
LOC: WOUND 04:57
DX: E11.621 Type 2 diabetes mellitus with foot ulcer (principal); L97.522 Non-pressure chronic ulcer of other part of left foot with fat layer exposed; E11.51 Type 2 diabetes mellitus with diabetic peripheral angiopathy without gangrene; I87.2 Venous insufficiency (chronic) (peripheral)
CPT/HCPCS: A9270

== ENCOUNTER 2024-06-05 01:32 | Day surgery (SDC) | payer MEDICARE, OTHER ==
[~2024-06-05 01:32] MED LIST changes: -Lidocaine HCl 4% Cream 5 GM ONE
[2024-06-05] MEDS ORDERED: Lidocaine HCl 4% Cream 5 GM ONE (09:34)
== END 2024-06-05 23:00 | disposition home or self-care (01) ==
LOC: WOUND 01:32
DX: E11.621 Type 2 diabetes mellitus with foot ulcer (principal); L97.522 Non-pressure chronic ulcer of other part of left foot with fat layer exposed; E11.51 Type 2 diabetes mellitus with diabetic peripheral angiopathy without gangrene; I87.2 Venous insufficiency (chronic) (peripheral); I73.9 Peripheral vascular disease, unspecified
CPT/HCPCS: 73660; A9270; G0463

== ENCOUNTER 2024-06-12 02:14 | Day surgery (SDC) | payer MEDICARE, OTHER | END 2024-06-12 23:00 | disposition home or self-care (01) | LOC: WOUND 02:14 | DX: E11.621 Type 2 diabetes mellitus with foot ulcer (principal); L97.522 Non-pressure chronic ulcer of other part of left foot with fat layer exposed; E11.51 Type 2 diabetes mellitus with diabetic peripheral angiopathy without gangrene; I87.2 Venous insufficiency (chronic) (peripheral) | CPT/HCPCS: G0463 ==

== ENCOUNTER 2024-06-26 06:52 | Day surgery (SDC) | payer MEDICARE, OTHER ==
[2024-06-26] VITALS (9 sets, daily range): BP systolic 110–151; BP diastolic 50–72
[~2024-06-26] VITALS: Ht 165.1 cm; Wt 68.5 kg
[2024-06-26] MEDS ORDERED: Heparin Sodium 1000 Units/ML 10ML MDV ONE ×2 (07:33→09:36)
[2024-06-26] MEDS ORDERED: NS 1,000 ML IV ONE ×2 (07:33→08:49)
[2024-06-26] MEDS ORDERED: NS 500 ML IV ONE (07:33)
[2024-06-26] MEDS ORDERED: Aspir 8181 MG PO (07:48)
[2024-06-26] MEDS ORDERED: FentaNYL Citrate 50 MCG/ML 2 ML Injection ONE (08:49)
[2024-06-26] MEDS ORDERED: Midazolam HCl 1MG / ML 2ML Vial ONE (08:49)
[2024-06-26] MEDS ORDERED: Nitroglycerin 2 MG/20 ML BTL ONE (09:36)
--- NOTE | 2024-06-26 10:28 | NUR ---
ARRIVES AROUND 1010 FROM WINDOWS ARCHITECT, SITE INTACT AND NO HEMATOMA, NO PAIN OR SWELLING. VSS, O2 SAT LOW, INCREASED TO 4L NC AND ENCOURAGED DEEP BREATHS, NOW DECREASING O2 TO 2L, RESTING, DENIES NEEDS, A/O, PULSES PRESENT, PALPABLE TO RLE, ANGIOSEAL IN PLACE.
--- NOTE | 2024-06-26 13:32 | NUR ---
DISCUSSED D/C INSTRUCTIONS, CALL IN PROGRESS TO [facility]; EARLIER ASSISTED PATIENT TO AMBULATE TO RESTROOM AND ON RETURN, DRESSED, IV REMOVED CANNULA INTACT, VSS, SITE REMAINED INTACT, DRY, NO HEMATOMA, GIVEN D/C INSTRUCTIONS AND DISCUSSED STARTING PLAVIX AND REASON, AND F/U APPT AFTER RIGHT LEG DONE, AND OFFICE TO CALL WELL CALLING SUNDAY IF NO CALL AND DISCUSSING PLAN WITH IMAGING REGARDING VISIT ON . NO QUESTIONS OR CONCERNS AT DISCHARGE OTHERWISE, TAKEN BY WHEELCHAIR, LEFT IN CARE OF GRANDDAUGHTER.
== END 2024-06-26 13:00 | disposition home or self-care (01) ==
LOC: MHTC 06:52
DX: E11.51 Type 2 diabetes mellitus with diabetic peripheral angiopathy without gangrene (principal); I70.223 Atherosclerosis of native arteries of extremities with rest pain, bilateral legs; E11.621 Type 2 diabetes mellitus with foot ulcer; L97.529 Non-pressure chronic ulcer of other part of left foot with unspecified severity; E11.22 Type 2 diabetes mellitus with diabetic chronic kidney disease; I13.2 Hypertensive heart and chronic kidney disease with heart failure and with stage 5 chronic kidney disease, or end stage renal disease; I50.30 Unspecified diastolic (congestive) heart failure; N18.6 End stage renal disease; Z87.891 Personal history of nicotine dependence; Z79.899 Other long term (current) drug therapy
CPT/HCPCS: 75625; 75716; 75774; 76937; 99152; 99153; C1725; C1760; C1769; C1887; C1894; C9772; J1644; J2250; J3010; J7030; J7050; Q9967

== ENCOUNTER → 2024-08-08 | Outpatient (CLI) | payer MEDICARE, OTHER ==
[~2024-08-08] MED LIST changes: +Aspir 8181 MG PO
[2024-08-08 20:24] LABS: Albumin, Blood 2.8 g/dL (3.4-5.0); Albumin/Globulin Ratio 0.6 (0.8-1.8); Bilirubin, Direct 9.2 mg/dL (0.0-0.3); Bilirubin, Indirect 2.7 mg/dL (0.1-0.7); Bilirubin, Total 11.9 mg/dL (0.1-1.0); Globulin, Blood 4.5 g/dL (2.2-4.0); Total Protein, Blood 7.3 g/dL (6.4-8.2)
== END ==
LOC: LAB SHORT 19:24 → LAB 19:24
PROVIDERS: Internal Medicine Nephrology
DX: K72.90 Hepatic failure, unspecified without coma (principal)
CPT/HCPCS: 80076

== ENCOUNTER 2024-08-11 09:47 | Emergency (ER) | payer MEDICARE, OTHER ==
[~2024-08-11] VITALS: Ht 177.8 cm; Wt 68.0 kg
[2024-08-11 11:12] LABS: BASOPHILS PERCENT AUTO 1 % (0-2); EOSINOPHILS ABSOLUTE AUTO 1.28 K/mm3 (0.00-0.68); EOSINOPHILS PERCENT AUTO 13 % (0-6); IMMATURE GRAN ABSOLUTE AUTO 0.04 K/mm3 (0.00-0.10); IMMATURE GRAN PERCENT AUTO 0 % (0-1); LYMPHOCYTES ABSOLUTE AUTO 0.54 K/mm3 (0.84-5.20); LYMPHOCYTES PERCENT AUTO 5 % (21-46); MONOCYTES ABSOLUTE AUTO 0.66 K/mm3 (0.16-1.47); MONOCYTES PERCENT AUTO 7 % (4-13); Mean Corpuscular HGB 28.7 pg (26.0-34.0); Mean Corpuscular HGB Conc 31.6 g/dL (31.5-36.5); Mean Corpuscular Volume 91 fL (80-100); NEUTROPHILS ABSOLUTE AUTO 7.34 K/mm3 (1.96-9.15); NEUTROPHILS PERCENT AUTO 74 % (41-73); Platelet Count 265 K/mm3 (150-400); RDW Standard Deviation 68.3 fL (35.1-46.3); Red Blood Cell Count 4.18 M/mm3 (4.30-5.90); White Blood Cell Count 9.96 K/mm3 (4.00-11.30)
[2024-08-11 11:12] LABS: Base Excess Venous 8.5 mmol/L; PCO2 Venous 47.9 mmHg (38-42); pH Blood Venous 7.44 (7.34-7.37)
[2024-08-11 12:05] LABS: Albumin, Blood 2.7 g/dL (3.4-5.0); Albumin/Globulin Ratio 0.6 (0.8-1.8); Bilirubin, Direct 9.2 mg/dL (0.0-0.3); Bilirubin, Indirect 2.6 mg/dL (0.1-0.7); Bilirubin, Total 11.8 mg/dL (0.1-1.0); Calcium, Blood 7.6 mg/dL (8.5-10.1); Globulin, Blood 4.9 g/dL (2.2-4.0); Total Protein, Blood 7.6 g/dL (6.4-8.2)
[2024-08-11 12:11] LABS: Bun/Creatinine Ratio 7.7 (12.0-20.0); Creatinine, Blood 8.99 mg/dL (0.60-1.20)
[2024-08-11] MEDS ORDERED: Sodium Bicarb 8.4% 1 MEQ/ML 50 ML Vial IV ONE (17:45)
[2024-08-11] MEDS ORDERED: Calcium Gluconate 10% 100 MG/ML INJ IV ONE (17:45)
[2024-08-11] MEDS ORDERED: Insulin Regular 100 Unit/ML 1ML Dose IV ONE (17:45)
[2024-08-11] MEDS ORDERED: Albuterol 2.5 MG/3 ML VIAL INH SCH (17:45)
[2024-08-11] MEDS ORDERED: Dextrose 50% 50 ML Syringe IV ONE (17:45)
[2024-08-11] MEDS ORDERED: Dextrose 50% 50 ML Vial IV ONE (18:15)
[2024-08-11] MEDS ORDERED: CALCIUM GLUC IN NACL, ISO-OSM 50 ML IV ONE (18:20)
[2024-08-11] MEDS ORDERED: Sodium Zirconium Cyclosilicate 10 GM Packet PO ONE (18:25)
[2024-08-11 20:45] VITALS: BP 131/81
== END 2024-08-11 22:20 | disposition short-term general hospital (02) ==
LOC: ER 09:47
PROVIDERS: Student in an Organized Health Care Education/Training Program
DX: R17 Unspecified jaundice (principal); E87.5 Hyperkalemia; E80.7 Disorder of bilirubin metabolism, unspecified; I12.0 Hypertensive chronic kidney disease with stage 5 chronic kidney disease or end stage renal disease; E11.22 Type 2 diabetes mellitus with diabetic chronic kidney disease; N18.6 End stage renal disease; Z87.891 Personal history of nicotine dependence; Z79.82 Long term (current) use of aspirin; Z79.899 Other long term (current) drug therapy; Z99.2 Dependence on renal dialysis
CPT/HCPCS: 71046; 74177; 80048; 80076; 82803; 82947; 83690; 85025; 93005; 93010; 94644; 94664; 96374-59; 96375; 99285-25; A9270; J0612; J1815; J7799; Q9967

== ENCOUNTER 2024-08-22 07:32 | Day surgery (SDC) | payer MEDICARE, OTHER ==
[~2024-08-22] VITALS: Ht 165.1 cm; Wt 66.0 kg
[2024-08-22] MEDS ORDERED: NS 500 ML IV ONE (07:43)
[2024-08-22] MEDS ORDERED: NS 1,000 ML IV ONE ×2 (07:44→08:33)
[2024-08-22] MEDS ORDERED: Heparin Sodium 1000 Units/ML 10ML MDV ONE ×2 (07:44→08:48)
[2024-08-22] MEDS ORDERED: Nitroglycerin 2 MG/20 ML BTL ONE (07:45)
[2024-08-22 08:17] VITALS: BP 110/74
[2024-08-22] MEDS ORDERED: FentaNYL Citrate 50 MCG/ML 2 ML Injection ONE (08:32)
[2024-08-22] MEDS ORDERED: Midazolam HCl 1MG / ML 2ML Vial ONE (08:32)
--- NOTE | 2024-08-22 09:40 | NUR ---
patient arrived from chemical laboratory technician. A%O, left groin site soft and nontender, dressing D&I. given report on site.
[2024-08-22 10:03] VITALS: BP 116/45
[2024-08-22 10:15] VITALS: BP 115/54
[2024-08-22 10:30] VITALS: BP 120/52
[2024-08-22 10:45] VITALS: BP 130/53
--- NOTE | 2024-08-22 11:28 | NUR ---
pt up in bed left groin site stable.
[2024-08-22 11:30] VITALS: BP 123/61
--- NOTE | 2024-08-22 12:18 | NUR ---
patient and verbalized understanding of diacharge instructions and precautions, no further questions. left groin mirna reamins free of swelling or bleeding, it is softa nd nontender, dressing D&I. IV site dced with catheter intact. patient discahrged via wheelchair, driving.
== END 2024-08-22 16:25 | disposition home or self-care (01) ==
LOC: MHTC 07:32
DX: E11.51 Type 2 diabetes mellitus with diabetic peripheral angiopathy without gangrene (principal); I13.2 Hypertensive heart and chronic kidney disease with heart failure and with stage 5 chronic kidney disease, or end stage renal disease; E11.22 Type 2 diabetes mellitus with diabetic chronic kidney disease; I50.30 Unspecified diastolic (congestive) heart failure; N18.6 End stage renal disease; Z99.2 Dependence on renal dialysis; Z95.0 Presence of cardiac pacemaker; Z79.899 Other long term (current) drug therapy; Z87.891 Personal history of nicotine dependence
CPT/HCPCS: 37224; 75625; 75716; 75774; 76937; 99152; 99153; C1725; C1760; C1769; C1887; C1894; C9772; J1644; J2250; J3010; J7030; J7050; Q9967

== ENCOUNTER 2024-08-25 18:44 | Emergency (ER) | payer MEDICARE, OTHER ==
[~2024-08-25] VITALS: Ht 165.1 cm; Wt 66.5 kg
[2024-08-25 19:39] VITALS: BP 115/47
== END 2024-08-26 01:00 | disposition home or self-care (01) ==
LOC: ER 18:44
DX: R17 Unspecified jaundice (principal); I12.0 Hypertensive chronic kidney disease with stage 5 chronic kidney disease or end stage renal disease; E11.22 Type 2 diabetes mellitus with diabetic chronic kidney disease; N18.6 End stage renal disease; Z79.899 Other long term (current) drug therapy; Z87.891 Personal history of nicotine dependence
CPT/HCPCS: 76705; 80076; 84132; 99283-25

== ENCOUNTER → 2024-08-25 | Outpatient (CLI) | payer MEDICARE, OTHER ==
[2024-08-25 16:32] LABS: Albumin, Blood 2.4 g/dL (3.4-5.0); Albumin/Globulin Ratio 0.5 (0.8-1.8); Bilirubin, Direct 8.8 mg/dL (0.0-0.3); Bilirubin, Indirect 2.1 mg/dL (0.1-0.7); Bilirubin, Total 10.9 mg/dL (0.1-1.0); Globulin, Blood 4.9 g/dL (2.2-4.0); Potassium, Blood 5.5 mmol/L (3.5-5.5); Total Protein, Blood 7.3 g/dL (6.4-8.2)
== END | disposition home or self-care (01) ==
LOC: LAB DAV 15:20
PROVIDERS: Internal Medicine Nephrology
DX: N18.6 End stage renal disease (principal)
CPT/HCPCS: 80076; 84132

== ENCOUNTER 2024-10-06 11:30 | Emergency (ER) | payer MEDICARE, OTHER ==
[~2024-10-06] VITALS: Ht 172.7 cm; Wt 63.5 kg
[2024-10-06 13:16] LABS: BASOPHILS ABSOLUTE AUTO 0.13 K/mm3 (0.00-0.23); BASOPHILS PERCENT AUTO 1 % (0-2); EOSINOPHILS ABSOLUTE AUTO 0.32 K/mm3 (0.00-0.68); EOSINOPHILS PERCENT AUTO 2 % (0-6); Hematocrit 34.5 % (37.0-53.0); IMMATURE GRAN ABSOLUTE AUTO 0.12 K/mm3 (0.00-0.10); IMMATURE GRAN PERCENT AUTO 1 % (0-1); LYMPHOCYTES ABSOLUTE AUTO 0.79 K/mm3 (0.84-5.20); LYMPHOCYTES PERCENT AUTO 4 % (21-46); MONOCYTES ABSOLUTE AUTO 1.12 K/mm3 (0.16-1.47); MONOCYTES PERCENT AUTO 6 % (4-13); Mean Corpuscular HGB 30.3 pg (26.0-34.0); Mean Corpuscular HGB Conc 31.9 g/dL (31.5-36.5); Mean Corpuscular Volume 95 fL (80-100); Mean Platelet Volume 10.4 fL (9.1-12.4); NEUTROPHILS ABSOLUTE AUTO 15.42 K/mm3 (1.96-9.15); NEUTROPHILS PERCENT AUTO 86 % (41-73); NRBC ABSOLUTE 0.03 K/mm3 (0.00-0.02); NRBC Auto 0.2 /100 WBC (0.0-0.2); Platelet Count 417 K/mm3 (150-400); RDW Coefficient Variation 14.9 % (11.7-14.2); RDW Standard Deviation 52.3 fL (35.1-46.3); Red Blood Cell Count 3.63 M/mm3 (4.30-5.90)
[2024-10-06 14:17] LABS: Albumin, Blood 2.1 g/dL (3.4-5.0); Albumin/Globulin Ratio 0.4 (0.8-1.8); Bilirubin, Total 10.6 mg/dL (0.1-1.0); Bun/Creatinine Ratio 9.1 (12.0-20.0); Creatinine, Blood 6.71 mg/dL (0.60-1.20); Potassium, Blood 4.6 mmol/L (3.5-5.5); Total Protein, Blood 8.1 g/dL (6.4-8.2)
[2024-10-06 16:06] VITALS: BP 117/69
[2024-10-06] MEDS ORDERED: METPRE4DP PO (16:15)
[2024-10-13] MEDS ORDERED: CLOP75 PO (17:39)
[2024-10-13] MEDS ORDERED: MIDODRINE HCL10 M1 PO (17:39)
[2024-10-13] MEDS ORDERED: MEGESTROL400 MG/13 PO (17:39)
[2024-10-13] MEDS ORDERED: INSULANI (17:39)
[2024-10-13] MEDS ORDERED: TORSE20 PO (17:39)
[2024-10-13] MEDS ORDERED: LOKELMA10 GM PO (17:39)
== END 2024-10-06 16:20 | disposition home or self-care (01) ==
LOC: ER 11:30
PROVIDERS: Emergency Medicine
DX: M54.16 Radiculopathy, lumbar region (principal); I12.0 Hypertensive chronic kidney disease with stage 5 chronic kidney disease or end stage renal disease; E11.22 Type 2 diabetes mellitus with diabetic chronic kidney disease; N18.6 End stage renal disease; Z87.891 Personal history of nicotine dependence; Z99.2 Dependence on renal dialysis; Z79.899 Other long term (current) drug therapy
CPT/HCPCS: 72132; 80053; 85025; 93005; 93010; 99285-25; Q9967